=== PATIENT | male | born 1950 | race Caucasian/White ===

== ENCOUNTER → 2020-12-14 09:20 | Outpatient (BNVA) | payer BC, MEDICAID, SELFPAY | PROVIDERS: Family Provider Nurse Practitioner Family; PCP Nurse Practitioner Family; Visit Provider Nurse Practitioner Family | DX: M54.5 Low back pain (principal); M54.16 Radiculopathy, lumbar region; Z12.5 Encounter for screening for malignant neoplasm of prostate | CPT/HCPCS: 84153; G0103 ==

== ENCOUNTER → 2021-02-14 11:03 | Outpatient (BNVA) | payer BC, MEDICAID, SELFPAY | PROVIDERS: Family Provider Nurse Practitioner Family; PCP Registered Nurse; Visit Provider Registered Nurse | DX: J02.9 Acute pharyngitis, unspecified (principal); R53.83 Other fatigue | CPT/HCPCS: 85025; 86308; 87070; 87635; 87880 ==

== ENCOUNTER → 2021-05-16 10:11 | Outpatient (BNVA) | payer BC, MEDICAID, SELFPAY | PROVIDERS: Family Provider Nurse Practitioner Family; PCP Registered Nurse; Visit Provider Registered Nurse | DX: Z12.5 Encounter for screening for malignant neoplasm of prostate (principal); E78.5 Hyperlipidemia, unspecified; E11.9 Type 2 diabetes mellitus without complications; I10 Essential (primary) hypertension | CPT/HCPCS: 80053; 80061; 83036; 84153; 85025 ==

== ENCOUNTER → 2021-11-23 08:56 | Outpatient (BNVA) | payer BC, MEDICAID, SELFPAY | PROVIDERS: Family Provider Nurse Practitioner Family; PCP Registered Nurse; Visit Provider Registered Nurse | DX: E11.9 Type 2 diabetes mellitus without complications (principal); I10 Essential (primary) hypertension; J44.9 Chronic obstructive pulmonary disease, unspecified | CPT/HCPCS: 80053; 83036; 85025 ==

== ENCOUNTER 2023-05-28 10:14 | Outpatient (CLI) | payer BC, MEDICAID, SELFPAY ==
[2023-05-28 10:47] LABS: Basophils % 0.5 %; Eosinophils # 0.4 10^3/uL (0.0-0.8); Eosinophils % 4.9 %; Hematocrit 39.6 % (37-53); Lymphocytes # 2.1 10^3/uL (0.8-4.8); Lymphocytes % 24.8 %; Mean Corpuscular HGB Conc 33.8 g/dL (30-55); Mean Corpuscular Hemoglobin 33.6 pg (27-33); Mean Corpuscular Volume 99.2 fl (82-101); Mean Platelet Volume 10.4 fL (7.4-10.4); Monocytes # 0.7 10^3/uL (0.2-0.9); Monocytes % 7.7 %; Neutrophils # 5.23 10^3/uL (1.8-7.7); Neutrophils % 61.9 %; Nucleated Red Blood Cells % 0 %; Platelet Count 280 10^3/cmm (157-399); Red Blood Count 3.99 10^6/uL (3.85-5.65); Red Cell Distribution Width 11.9 % (12.1-15.1); White Blood Count 8.44 10^3/uL (3.29-11.43)
[2023-05-28 11:03] LABS: Albumin Level 4.3 g/dL (3.5-5.2); Anion Gap 17.6 (5-19); Blood Urea Nitrogen 29 mg/dL (8-23); Calcium 9.4 mg/dL (8.5-10.5); Carbon Dioxide 20 mmol/L (22-29); Chloride 108 mmol/L (98-107); Glomerular Filtration Rate 42.9 mL/min (90-130); Glucose 116 mg/dL (65-115); Phosphorus 2.8 mg/dL (2.5-4.5); Potassium 4.6 mmol/L (3.5-5.1); Sodium 141 mmol/L (136-145)
[2023-05-28 11:07] LABS: Calcium 9.6 mg/dL (8.5-10.5)
[2023-05-28 11:07] LABS: Creatinine Urine, Random 161 mg/dL (39-259); Microalbumin Random Urine 10 ug/dL (0-20)
[2023-05-28 11:11] LABS: Microalbum Creatinine Ratio Ur 62 mg/dL (0-20)
[2023-05-28 11:15] LABS: Parathyroid Hormone 41.7 pg/mL (15-65)
[2023-05-28 11:19] LABS: 25 Hydroxy Vitamin D 68 ng/mL (30-100)
== END 2023-05-28 10:15 | disposition home or self-care (01) ==
PROVIDERS: PCP Family Medicine; Visit Provider Registered Nurse
DX: E55.9 Vitamin D deficiency, unspecified (principal); E11.22 Type 2 diabetes mellitus with diabetic chronic kidney disease; I12.9 Hypertensive chronic kidney disease with stage 1 through stage 4 chronic kidney disease, or unspecified chronic kidney disease; N18.31 Chronic kidney disease, stage 3a; N25.81 Secondary hyperparathyroidism of renal origin; D64.89 Other specified anemias
CPT/HCPCS: 36415; 80069; 82044; 82306; 82310; 83970; 85025

== ENCOUNTER 2025-04-27 10:27 | Outpatient (CLI) | payer MEDICARE, MEDICAID, SELFPAY | END 2025-04-27 10:28 | disposition home or self-care (01) | LOC: LAB 05-01 09:45 | PROVIDERS: PCP Nurse Practitioner Family; Visit Provider Nurse Practitioner Family | DX: R10.9 Unspecified abdominal pain (principal) | CPT/HCPCS: 80053; 81000; 85025 ==

== ENCOUNTER 2025-04-28 17:41 | Outpatient (CLI) | payer MEDICARE, MEDICAID, SELFPAY ==
--- NOTE | 2025-04-28 17:00 | CTR_ITS ---
PROCEDURE INFORMATION: Exam: CT Abdomen And Pelvis With Contrast Exam date and time: 04/28/2025 5:54 PM Age: 74 years old Clinical indication: Lower abdominal/flank pain for 5 days TECHNIQUE: Imaging protocol: Computed tomography of the abdomen and pelvis with contrast. Radiation optimization: All CT scans at this facility use at least one of these dose optimization techniques: automated exposure control; mA and/or kV adjustment per patient size (includes targeted exams where dose is matched to clinical indication); or iterative reconstruction. Contrast material: OMNIPAQUE 350; Contrast volume: 100 ml; Contrast route: INTRAVENOUS (IV); COMPARISON: No relevant prior studies available. RADIATION DOSE METRICS: Total DLP (mGy-cm): 440.96 FINDINGS: Lungs: Visualized lung bases are unremarkable. Liver: Normal. No mass. Gallbladder and biliary ducts: Normal. No calcified stones. No ductal dilation. Pancreas: Homogeneous pancreatic enhancement. No main pancreatic duct dilation. Spleen: No splenomegaly. Adrenal glands: There is a left adrenal nodule measuring 1.7 x 2.0 cm, incompletely characterized on this exam. Kidneys and ureters: No hydronephrosis. Symmetric nephrograms. Mild bilateral perinephric stranding. Probable renal cyst in the left kidney. Stomach and bowel: Colonic diverticulosis without CT findings of acute diverticulitis. No bowel obstruction. No mucosal thickening. Appendix: The appendix is normal. Intraperitoneal space: Unremarkable. No free air. No significant fluid collection. Vasculature: Infrarenal abdominal aortic aneurysm measuring up to 3.3 cm. Extensive atherosclerosis. Lymph nodes: No lymphadenopathy by CT size criteria. Urinary bladder: The urinary bladder is decompressed. Reproductive: Prostatic calcifications. Bones/joints: No acute fracture. Soft tissues: Unremarkable. CT/CT abdomen pelvis w con* 08000 IMPRESSION: 1. Mild bilateral perinephric stranding without striated nephrograms. Findings may be related to chronic changes, mild infection or prior inflammation. Recommend correlation with clinical findings and results of urinalysis. 2. Left adrenal nodule measuring up to 2.0 cm, incompletely characterized on this exam. This can be further evaluated with an adrenal protocol CT on a nonemergent basis if clinically indicated. COMMENTS: Consistent with the [employer]'s Incidental Findings Committee white paper (J Am Dawood Radiol 2018): Any incidental renal lesion less than 1 cm or classified as too small to characterize, or any incidental cystic renal lesion characterized as simple-appearing, is likely benign. No follow-up imaging is recommended for these lesions per consensus recommendations based on imaging criteria.
[2025-04-28] MEDS: iohexol 350 mg/mL 500 mL Btl (per mL) IV (18:05)
== END 2025-04-28 17:42 | disposition home or self-care (01) ==
LOC: RAD 17:44
PROVIDERS: PCP Nurse Practitioner Family; Visit Provider Nurse Practitioner Family
DX: R10.9 Unspecified abdominal pain (principal); K86.89 Other specified diseases of pancreas; E27.9 Disorder of adrenal gland, unspecified; R93.429 Abnormal radiologic findings on diagnostic imaging of unspecified kidney; N28.89 Other specified disorders of kidney and ureter; K57.30 Diverticulosis of large intestine without perforation or abscess without bleeding; I71.43 Infrarenal abdominal aortic aneurysm, without rupture; I70.0 Atherosclerosis of aorta; N42.0 Calculus of prostate; N32.89 Other specified disorders of bladder
CPT/HCPCS: 74177